=== PATIENT | female | born 1945 | race Caucasian/White ===

== ENCOUNTER 2020-11-02 10:29 | Emergency (ER) | payer MEDICARE, OTHER ==
[~2020-11-02] VITALS: Ht 172.7 cm; Wt 91.8 kg
[~2020-11-02 10:29] MED LIST: BUPR-319 PO; PANT-47 PO; TRAM50TA2 PO; TRAZ-256 PO
[2020-11-02] MEDS ORDERED: ondansetron 4mg rapidly disintigrating tab PO ONE (10:40)
[2020-11-02] MEDS ORDERED: HYDROcodone/acetaminophen 5mg/325mg tablet PO ONE (10:50)
--- NOTE | 2020-11-02 10:53 | NUR ---
PT GIVEN 2 ICE PACK TO WRAP AROUND PT'S NECK.
[2020-11-02] MEDS ORDERED: ONDA4TAB6 PO (11:57)
[2020-11-02] MEDS ORDERED: HYDR-3965 PO (11:57)
[2020-11-02 12:12] VITALS: BP 148/96
== END 2020-11-02 12:17 | disposition home or self-care (01) ==
LOC: ER 10:30
DX: S01.01XA Laceration without foreign body of scalp, initial encounter (principal); R55 Syncope and collapse; R11.0 Nausea; Z79.899 Other long term (current) drug therapy; W07.XXXA Fall from chair, initial encounter; Y93.89 Activity, other specified; Y92.010 Kitchen of single-family (private) house as the place of occurrence of the external cause; W17.89XA Other fall from one level to another, initial encounter; Y92.011 Dining room of single-family (private) house as the place of occurrence of the external cause
CPT/HCPCS: 70450; 72125; 72170; 99285